=== PATIENT | male | born 1955 | race Caucasian/White ===

== ENCOUNTER 2016-07-31 14:56 | Emergency (ER) | payer OTHER ==
[~2016-07-31] VITALS: Ht 175.2 cm; Wt 99.8 kg
[~2016-07-31 14:56] MED LIST: ANAPROX DS550 MG PO; ASPIRIN BUFFER325 MG PO; INVEGA6 MG PO; LISINOPRIL20 MG PO; MIRTAZAPINE30 M2 PO; MOTRIN 600 MG E4 TAB PO; Motrin,Rufen800 MG PO; NATURE'S BLEND F1 MG PO; PRAVASTATIN SOD40 MG PO; ROBAXIN750 MG PO; THERA TABS1 TAB PO; VITAMIN B-11 TAB PO; VITAMIN D50000 I3 PO
[2016-07-31] MEDS ORDERED: TENORMIN50 MG PO (15:05)
[2016-07-31] MEDS ORDERED: CYMBALTA30 MG PO (15:05)
[2016-07-31] MEDS ORDERED: ASPIRIN81 M1 PO (15:05)
[2016-07-31] MEDS ORDERED: JANUVIA100 MG PO (15:06)
[2016-07-31] MEDS ORDERED: LIPITOR40 MG PO (15:06)
[2016-07-31] MEDS ORDERED: COLACE100 MG PO (15:06)
[2016-07-31] MEDS ORDERED: LISINOPRIL20 MG PO (15:06)
[2016-07-31] MEDS ORDERED: NORCO 10-325 T1 EACH PO (15:07)
[2016-07-31] MEDS ORDERED: MS CONTIN15 MG PO (15:07)
[2016-07-31] MEDS ORDERED: MILK OF MA400 MG/5 M PO (15:07)
[2016-07-31 15:41] LABS: BASO # 0.1 10*3/uL (0.0-0.1); BASO % 0.7 % (0.0-1.0); EOS # 0.4 10*3/uL (0.0-0.4); EOS % 5.5 % (1.0-4.0); HEMATOCRIT 43.3 % (42.0-52.0); HEMOGLOBIN 14.7 g/dl (14.0-18.0); LYMPH # 3.5 10*3/uL (1.3-4.4); LYMPH % 46.9 % (27.0-41.0); MEAN CORPUSCULAR HGB 33.3 pg (27.0-31.0); MEAN CORPUSCULAR HGB CONC 33.9 g/dl (33.0-37.0); MEAN PLATELET VOLUME 9.7 fl (9.6-12.3); MONO # 0.9 10*3/uL (0.1-1.0); MONO % 12.4 % (3.0-9.0); NEUT # 2.6 10*3/uL (2.3-7.9); NEUT % 34.4 % (47.0-73.0); PLATELET COUNT AUTOMATED 196 10*3/uL (130-400); RED BLOOD COUNT 4.42 10*6/uL (4.50-5.90); RED CELL DISTRI WIDTH 12.9 % (0-14.5); WHITE BLOOD COUNT 7.4 10*3/uL (4.8-10.8)
[2016-07-31 15:57] LABS: ALBUMIN 3.9 gm/dl (3.1-4.5); ALKALINE PHOSPHATASE 102 U/L (45-117); BILIRUBIN, TOTAL 0.3 mg/dl (0.2-1.0); BUN 26 mg/dl (7-24); CARBON DIOXIDE 25 mmol/L (21-32); CHLORIDE 101 mmol/L (98-107); EST GLOM FILT AFRICAN AMERICAN > 60 ml/min; GLUCOSE 171 mg/dL (65-99); POTASSIUM 4.5 mmol/L (3.5-5.1); SGOT/AST 21 IU/L (3-35); SGPT/ALT 28 U/L (12-78); SODIUM 136 mmol/L (136-145); TOTAL PROTEIN 7.5 gm/dL (6.4-8.2)
[2016-07-31 15:59] LABS: BILIRUBIN NEGATIVE (NEGATIVE); BLOOD TRACE-INTACT (NEGATIVE); CLARITY CLEAR (CLEAR); COLOR YELLOW (YELLOW); GLUCOSE NEGATIVE (NEGATIVE); KETONE NEGATIVE (NEGATIVE); LEUKO ESTERASE NEGATIVE (NEGATIVE); NITRITE NEGATIVE (NEGATIVE); PROTEIN NEGATIVE (NEGATIVE); SPECIFIC GRAVITY <= 1.005 (1.005-1.030); UROBILINOGEN 0.2 E.U./dl (0.2-1.0)
[2016-07-31 16:35] LABS: URINE REFLEX COMMENT NO (NO); WBC 0-2 wbc/hpf (0-5)
== END 2016-07-31 17:36 ==
LOC: ED 14:56
PROVIDERS: Nurse Practitioner Family
DX: K59.03 Drug induced constipation (principal); F32.9 Major depressive disorder, single episode, unspecified; I25.10 Atherosclerotic heart disease of native coronary artery without angina pectoris; I10 Essential (primary) hypertension; E78.5 Hyperlipidemia, unspecified; F17.200 Nicotine dependence, unspecified, uncomplicated; Z79.899 Other long term (current) drug therapy; Z79.82 Long term (current) use of aspirin

== ENCOUNTER 2016-10-24 10:48 | Emergency (ER) | payer OTHER, MEDICAID ==
[~2016-10-24] VITALS: Ht 172.7 cm; Wt 99.8 kg
[~2016-10-24 10:48] MED LIST changes: +ASPIRIN81 M1 PO; +COLACE100 MG PO; +CYMBALTA30 MG PO; +JANUVIA100 MG PO; +LIPITOR40 MG PO; +MILK OF MA400 MG/5 M PO; +MS CONTIN15 MG PO; +NORCO 10-325 T1 EACH PO; +TENORMIN50 MG PO
[2016-10-24 11:02] LABS: BASO # 0.1 10*3/uL (0.0-0.1); BASO % 0.7 % (0.0-1.0); EOS # 0.3 10*3/uL (0.0-0.4); EOS % 3.9 % (1.0-4.0); HEMATOCRIT 42.5 % (42.0-52.0); HEMOGLOBIN 14.2 g/dl (14.0-18.0); LYMPH # 2.5 10*3/uL (1.3-4.4); LYMPH % 33.2 % (27.0-41.0); MEAN CELL VOLUME 100.2 fl (80.0-94.0); MEAN CORPUSCULAR HGB 33.5 pg (27.0-31.0); MEAN CORPUSCULAR HGB CONC 33.4 g/dl (33.0-37.0); MEAN PLATELET VOLUME 9.1 fl (9.6-12.3); MONO # 0.7 10*3/uL (0.1-1.0); MONO % 9.1 % (3.0-9.0); NEUT # 3.9 10*3/uL (2.3-7.9); NEUT % 52.8 % (47.0-73.0); PLATELET COUNT AUTOMATED 210 10*3/uL (130-400); RED BLOOD COUNT 4.24 10*6/uL (4.50-5.90); RED CELL DISTRI WIDTH 14.2 % (0-14.5); WHITE BLOOD COUNT 7.5 10*3/uL (4.8-10.8)
[2016-10-24 11:17] LABS: ALKALINE PHOSPHATASE 81 U/L (45-117); BILIRUBIN, TOTAL 0.4 mg/dl (0.2-1.0); BUN 17 mg/dl (7-24); CARBON DIOXIDE 28 mmol/L (21-32); CHLORIDE 106 mmol/L (98-107); EST GLOM FILT AFRICAN AMERICAN > 60 ml/min; GLUCOSE 119 mg/dL (65-99); POTASSIUM 4.4 mmol/L (3.5-5.1); SGOT/AST 19 IU/L (3-35); SGPT/ALT 30 U/L (12-78); SODIUM 141 mmol/L (136-145); TOTAL PROTEIN 7.2 gm/dL (6.4-8.2)
[2016-10-24] MEDS ORDERED: BENGAY113 GM TP (12:37)
[2016-10-24] MEDS ORDERED: ASPIRIN325 M2 PO (12:41)
[2016-10-24] MEDS ORDERED: 'TENORMIN50 MG PO (12:41)
[2016-10-24] MEDS ORDERED: CYMBALTA30 MG PO (12:42)
[2016-10-24] MEDS ORDERED: VOLTAREN11 TP (12:45)
[2016-10-24] MEDS ORDERED: JANUVIA100 MG PO (12:46)
[2016-10-24] MEDS ORDERED: LIPITOR40 MG PO (12:46)
[2016-10-24] MEDS ORDERED: METFORMIN1000 MG PO (12:48)
[2016-10-24] MEDS ORDERED: LISINOPRIL20 MG PO (12:48)
[2016-10-24] MEDS ORDERED: MIRALAX POWDER17 G1 PO (12:49)
[2016-10-24] MEDS ORDERED: MOTRIN IB200 M1 PO (12:50)
[2016-10-24] MEDS ORDERED: NOVOLOG10 ML IV (12:51)
[2016-10-24] MEDS ORDERED: TYLENOL325 M1 PO (12:51)
[2016-10-24] MEDS ORDERED: NORCO 5-325 TA1 EACH PO (12:51)
[2016-10-24] MEDS ORDERED: VICTOZA 3-PAK6 MG/ML SC (12:52)
[2016-10-24] MEDS ORDERED: VITAMIN D31000 IU PO (12:53)
[2016-10-24] MEDS ORDERED: Zofran4 MG PO (12:53)
[2016-10-24 13:45] LABS: BILIRUBIN NEGATIVE (NEGATIVE); BLOOD NEGATIVE (NEGATIVE); CLARITY CLEAR (CLEAR); COLOR YELLOW (YELLOW); GLUCOSE NEGATIVE (NEGATIVE); KETONE NEGATIVE (NEGATIVE); LEUKO ESTERASE NEGATIVE (NEGATIVE); NITRITE NEGATIVE (NEGATIVE); PH 6.5 (5.0-9.0); PROTEIN TRACE (NEGATIVE); SPECIFIC GRAVITY <= 1.005 (1.005-1.030)
[2016-10-24] MEDS ORDERED: ZOFRAN4 MG PO (13:55)
[2016-10-24 13:56] LABS: URINE REFLEX COMMENT NO (NO)
== END 2016-10-24 14:08 | disposition home or self-care (01) ==
LOC: ED 10:48
PROVIDERS: Nurse Practitioner Family
DX: R11.2 Nausea with vomiting, unspecified (principal); R03.0 Elevated blood-pressure reading, without diagnosis of hypertension; R74.8 Abnormal levels of other serum enzymes; I25.10 Atherosclerotic heart disease of native coronary artery without angina pectoris; F32.9 Major depressive disorder, single episode, unspecified; E78.5 Hyperlipidemia, unspecified; F17.200 Nicotine dependence, unspecified, uncomplicated; Z90.89 Acquired absence of other organs; Z79.899 Other long term (current) drug therapy; Z79.82 Long term (current) use of aspirin; Z79.4 Long term (current) use of insulin

== ENCOUNTER → 2016-11-09 | Outpatient (CLI) | payer OTHER, MEDICAID ==
[~2016-11-09] MED LIST changes: +'TENORMIN50 MG PO; +ASPIRIN325 M2 PO; +BENGAY113 GM TP; +METFORMIN1000 MG PO; +MIRALAX POWDER17 G1 PO; +MOTRIN IB200 M1 PO; +NORCO 5-325 TA1 EACH PO; +NOVOLOG10 ML IV; +TYLENOL325 M1 PO; +VICTOZA 3-PAK6 MG/ML SC; +VITAMIN D31000 IU PO; +VOLTAREN11 TP; +ZOFRAN4 MG PO; +Zofran4 MG PO
== END | disposition home or self-care (01) ==
LOC: US 07:17
DX: K76.0 Fatty (change of) liver, not elsewhere classified (principal); Z90.5 Acquired absence of kidney

== ENCOUNTER → 2016-11-19 | Outpatient (CLI) | payer OTHER, MEDICAID | END | disposition home or self-care (01) | LOC: NM 07:00 | DX: J44.9 Chronic obstructive pulmonary disease, unspecified (principal); E11.9 Type 2 diabetes mellitus without complications; I10 Essential (primary) hypertension; E55.9 Vitamin D deficiency, unspecified; R07.89 Other chest pain; Q60.0 Renal agenesis, unilateral; E78.5 Hyperlipidemia, unspecified; R10.11 Right upper quadrant pain; R11.2 Nausea with vomiting, unspecified ==

== ENCOUNTER → 2016-12-16 | Day surgery (SDC) | payer OTHER ==
[~2016-12-16] VITALS: Ht 172.7 cm; Wt 99.8 kg
[~2016-12-16] MED LIST changes: +OMEPRAZOLE20 M2 PO
--- NOTE | ~2016-12-16 | O ---
[place], [place] OPERATIVE NOTE NAME: MONISHA SERRATO UNIT #: [id number] ROOM: DOCTOR: YESSICA CHRISTY,STEFANIE BIRTHDATE: [birth year] DOS: 12/16/2016 INDICATION: The patient has presented with nausea, epigastric distress and dyspepsia. PROCEDURE: Today's procedure part of investigation is panendoscopy plus biopsy. PREMEDICATIONS: Versed and Diprivan. SCOPE: Olympus forward-viewing gastroscope Q10 video. REPORT: After putting the patient in the left lateral position and application of lubricant to the scope, the scope was introduced. Thereafter, under direct visualization, I advanced through the length of the esophagus without difficulty. Distal esophagitis, hiatal hernia approximately 2.5 cm was identified. Gastric pouch was entered. Gastritis was seen. Antrum was biopsied for H. pylori. Duodenal bulb, second and third part within normal limit. The patient extubated and tolerated the procedure well. IMPRESSION: Distal esophagitis, hiatal hernia, gastritis status post biopsy. PLAN AND DISCUSSION: Omeprazole 20 mg 1 daily would suffice. Antireflux measures with elevation of the head of the bed 6 inch at all time was recommended. Advised to abstain from smoking and alcohol. Followup routinely with you in office, p.r.n. visit with us in [facility]. I thank you very much indeed for kind referral. STEFANIE JUAN MD CM:OPRECORD:OPERATIVE NOTE [id number] STEFANIE JUAN MD 12/17/16 1434 interface
--- NOTE | ~2016-12-16 | O ---
[place], [place] OPERATIVE NOTE NAME: MONISHA SERRATO UNIT #: [id number] ROOM: DOCTOR: STEFANIE JUAN MD BIRTHDATE: [birth year] DOS: 12/16/2016 INDICATION: A 61-year-old patient who presented with nausea, vomiting, epigastric distress, dyspepsia, constipation, change in bowel habit, visits to Emergency Room. ALLERGIES: No known medications. FAMILY HISTORY: Brother with colonic carcinoma. PAST SURGICAL HISTORY: Left shoulder, left knee, CABG x 4. PAST MEDICAL HISTORY: Hypertension, diabetes, hypercholesterolemia, ETOH, and pain management on [place]. SOCIAL HISTORY: He is a smoker and chronic alcohol consumer. PROCEDURE: Todays' procedure part of investigation is EGD and colonoscopy. PREMEDICATION: Versed and Diprivan. SCOPE: Olympus forward-viewing colonoscope 10L video. REPORT: After putting the patient in the left lateral position and after application of lubricant to the scope, the scope was introduced. Thereafter, under direct visualization, I advanced through the length of colon without difficulty. Base of the cecum explored, appendiceal orifice identified, and ileocecal valve was defined. The scope was gradually withdrawn from ascending, transverse, descending colon. Diverticulosis was appreciated. This was moderate degree in sigmoid colon. A sessile polypoid lesion in the rectal pouch with piecemeal polypectomy was removed. The patient extubated, tolerated procedure well. IMPRESSION: Diverticulosis of sigmoid colon. A sessile polypoid lesion in rectal pouch is status post piecemeal polypectomy. PLAN AND DISCUSSION: We are going to proceed with panendoscopy. [place], [place] OPERATIVE NOTE NAME: MONISHA SERRATO UNIT #: [id number] ROOM: DOCTOR: STEFANIE JUAN MD BIRTHDATE: [birth year] STEFANIE JUAN MD CM:OPRECORD:OPERATIVE NOTE [id number] STEFANIE JUAN MD 12/18/16 1347 interface
[2016-12-16 09:00] VITALS: BP 166/88
[2016-12-16 09:43] VITALS: BP 103/60
[2016-12-16 10:00] VITALS: BP 100/70
[2016-12-16 10:12] VITALS: BP 100/70
== END | disposition home or self-care (01) ==
LOC: SDC 12-10 08:45
DX: K29.70 Gastritis, unspecified, without bleeding (principal); K20.9 Esophagitis, unspecified; K44.9 Diaphragmatic hernia without obstruction or gangrene; E10.9 Type 1 diabetes mellitus without complications; F17.210 Nicotine dependence, cigarettes, uncomplicated; I25.10 Atherosclerotic heart disease of native coronary artery without angina pectoris; I25.2 Old myocardial infarction; I10 Essential (primary) hypertension; E78.5 Hyperlipidemia, unspecified; Z86.73 Personal history of transient ischemic attack (TIA), and cerebral infarction without residual deficits; Z90.5 Acquired absence of kidney; Z98.890 Other specified postprocedural states

== ENCOUNTER → 2016-12-31 | Outpatient (CLI) | payer OTHER ==
[~2016-12-31] MED LIST changes: +LANTUS100 U/ML SC
== END | disposition home or self-care (01) ==
LOC: CARD 02:06
DX: I25.10 Atherosclerotic heart disease of native coronary artery without angina pectoris (principal); I25.9 Chronic ischemic heart disease, unspecified

== ENCOUNTER 2017-01-14 23:11 | Inpatient (IN) | payer OTHER ==
[~2017-01-14] VITALS: Ht 172.7 cm; Wt 99.6 kg
[2017-01-14 23:11] VITALS: BP 167/86
[2017-01-14] MEDS ORDERED: CARAFATE1 G1 PO (23:39)
[2017-01-14] MEDS ORDERED: REGLAN5 MG PO (23:41)
[2017-01-14 23:43] LABS: INTERNATIONAL NORM RATIO 0.9 (2.0-3.5); PROTHROMBIN TIME 9.4 SECONDS (9.0-12.4)
[2017-01-14 23:50] LABS: ALBUMIN 3.6 gm/dl (3.1-4.5); BILIRUBIN, TOTAL 0.5 mg/dl (0.2-1.0); MAGNESIUM 1.5 mg/dL (1.5-2.1); POTASSIUM 4.7 mmol/L (3.5-5.1)
[2017-01-14 23:51] VITALS: BP 177/87
[2017-01-14 23:51] LABS: BASO # 0.1 10*3/uL (0.0-0.1); BASO % 0.7 % (0.0-1.0); EOS # 0.3 10*3/uL (0.0-0.4); EOS % 3.6 % (1.0-4.0); HEMATOCRIT 43.1 % (42.0-52.0); HEMOGLOBIN 15.7 g/dl (14.0-18.0); LYMPH # 3.1 10*3/uL (1.3-4.4); LYMPH % 35.1 % (27.0-41.0); MEAN CELL VOLUME 96.2 fl (80.0-94.0); MEAN CORPUSCULAR HGB CONC 36.4 g/dl (33.0-37.0); MEAN PLATELET VOLUME 10.3 fl (9.6-12.3); MONO # 0.9 10*3/uL (0.1-1.0); MONO % 9.9 % (3.0-9.0); NEUT # 4.4 10*3/uL (2.3-7.9); NEUT % 50.4 % (47.0-73.0); PLATELET COUNT AUTOMATED 192 10*3/uL (130-400); RED BLOOD COUNT 4.48 10*6/uL (4.50-5.90); RED CELL DISTRI WIDTH 12.6 % (0-14.5); WHITE BLOOD COUNT 8.8 10*3/uL (4.8-10.8)
[2017-01-14 23:52] LABS: TROPONIN I 0.02 ng/ml (<0.045)
[2017-01-14 23:53] LABS: TOTAL PROTEIN 6.9 gm/dL (6.4-8.2)
[2017-01-15 00:45] VITALS: BP 178/86
[2017-01-15 01:10] VITALS: BP 178/90
[2017-01-15 01:56] VITALS: BP 181/92
[2017-01-15 02:20] VITALS: BP 160/86
[2017-01-15] MEDS ORDERED: LISINOPRIL-HYDR1 TA2 PO (02:32)
[2017-01-15 04:00] VITALS: BP 161/97
[2017-01-15 06:02] LABS: MAGNESIUM 1.4 mg/dL (1.5-2.1); POTASSIUM 4.1 mmol/L (3.5-5.1)
[2017-01-15 06:05] LABS: BASO # 0.1 10*3/uL (0.0-0.1); BASO % 0.6 % (0.0-1.0); EOS # 0.4 10*3/uL (0.0-0.4); EOS % 3.8 % (1.0-4.0); HEMOGLOBIN 15.1 g/dl (14.0-18.0); LYMPH # 3.5 10*3/uL (1.3-4.4); LYMPH % 35.4 % (27.0-41.0); MEAN CELL VOLUME 97.3 fl (80.0-94.0); MEAN CORPUSCULAR HGB 33.4 pg (27.0-31.0); MEAN CORPUSCULAR HGB CONC 34.3 g/dl (33.0-37.0); MEAN PLATELET VOLUME 10.5 fl (9.6-12.3); MONO # 0.9 10*3/uL (0.1-1.0); NEUT # 5.1 10*3/uL (2.3-7.9); NEUT % 50.8 % (47.0-73.0); PHOSPHOROUS 2.6 mg/dL (2.5-4.9); PLATELET COUNT AUTOMATED 185 10*3/uL (130-400); RED BLOOD COUNT 4.52 10*6/uL (4.50-5.90)
[2017-01-15 06:11] LABS: HEMOGLOBIN A1c 11.2 % (4.8-5.6)
[2017-01-15 06:20] LABS: THYROID STIM HORMONE (HS) 0.752 uIU/ml (0.358-4.75)
[2017-01-15 06:22] LABS: FREE T4 1.2 ng/dl (0.76-1.46)
[2017-01-15 07:07] LABS: VITAMIN D, 25-HYDROXY 42.5 ng/mL (30-100)
[2017-01-15 07:08] LABS: FOLIC ACID 18.36 ng/mL (>5.38)
[2017-01-15 08:00] VITALS: BP 164/78
== END 2017-01-15 09:00 | disposition short-term general hospital (02) | DRG 280 ==
LOC: ED 23:11 → 5E 01-15 01:42 → ICCU 01-15 03:51
PROVIDERS: Emergency Medicine; Internal Medicine
DX: I21.4 Non-ST elevation (NSTEMI) myocardial infarction (principal); E11.01 Type 2 diabetes mellitus with hyperosmolarity with coma; N17.0 Acute kidney failure with tubular necrosis; E72.51 Non-ketotic hyperglycinemia; F32.9 Major depressive disorder, single episode, unspecified; I10 Essential (primary) hypertension; E78.5 Hyperlipidemia, unspecified; Z83.3 Family history of diabetes mellitus; E11.65 Type 2 diabetes mellitus with hyperglycemia; Z95.5 Presence of coronary angioplasty implant and graft; F17.210 Nicotine dependence, cigarettes, uncomplicated; I25.118 Atherosclerotic heart disease of native coronary artery with other forms of angina pectoris; D75.89 Other specified diseases of blood and blood-forming organs; E66.9 Obesity, unspecified; Z68.39 Body mass index [BMI] 39.0-39.9, adult

== ENCOUNTER 2021-09-12 17:24 | Inpatient (IN) | payer OTHER ==
[~2021-09-12] VITALS: Ht 175.2 cm; Wt 83.9 kg
[~2021-09-12 17:24] MED LIST changes: +CARAFATE1 G1 PO; +LISINOPRIL-HYDR1 TA2 PO; +REGLAN5 MG PO; -VITAMIN D31000 IU PO; +VITAMIN D3125 MC1 PO
[2021-09-12 17:32] VITALS: BP 154/63
[2021-09-12 17:58] LABS: BASO # 0.1 10*3/uL (0.0-0.1); BASO % 0.6 % (0.0-1.0); EOS # 0.3 10*3/uL (0.0-0.4); EOS % 3.9 % (1.0-4.0); HEMATOCRIT 44.3 % (42.0-52.0); LYMPH # 2.9 10*3/uL (1.3-4.4); LYMPH % 34.2 % (27.0-41.0); MEAN CELL VOLUME 96.5 fl (80.0-94.0); MEAN CORPUSCULAR HGB 30.3 pg (27.0-31.0); MEAN CORPUSCULAR HGB CONC 31.4 g/dl (33.0-37.0); MEAN PLATELET VOLUME 8.8 fl (9.6-12.3); MONO # 0.9 10*3/uL (0.1-1.0); MONO % 10.4 % (3.0-9.0); NEUT # 4.3 10*3/uL (2.3-7.9); NEUT % 50.8 % (47.0-73.0); PLATELET COUNT AUTOMATED 184 10*3/uL (130-400); RED BLOOD COUNT 4.59 10*6/uL (4.50-5.90); RED CELL DISTRI WIDTH 14.1 % (0-14.5); WHITE BLOOD COUNT 8.5 10*3/uL (4.8-10.8)
[2021-09-12 18:18] LABS: ALKALINE PHOSPHATASE 95 U/L (45-117); BUN 22 mg/dl (7-24); CHLORIDE 107 mmol/L (98-107); CREATININE 1.33 mg/dL (0.70-1.30); POTASSIUM 4.7 mmol/L (3.5-5.1); SGOT/AST 21 IU/L (3-35); SGPT/ALT 37 U/L (12-78); SODIUM 138 mmol/L (136-145); TOTAL PROTEIN 7.3 gm/dL (6.4-8.2)
[2021-09-12 19:04] LABS: BILIRUBIN Negative (Negative); BLOOD Negative (Negative); CLARITY Cloudy (Clear); COLOR Yellow (Yellow); GLUCOSE Negative (Negative); KETONE Trace (Negative); LEUKO ESTERASE 2+ (Negative); NITRITE Positive (Negative); PH 5.5 (4.5-8.0)
[2021-09-12 19:17] LABS: URINE COCAINE < 300 (300ng/ml); URINE METHADONE < 300 (300ng/ml); URINE OPIATES < 300 (300ng/ml)
[2021-09-12 19:28] LABS: URINE AMPHETAMINES < 1000 (1000ng/ml); URINE BARBITURATES < 200 (200ng/ml); URINE BENZODIAZEPINES < 200 (200ng/ml); URINE CANNABINOIDS (THC) < 50 (50ng/ml)
[2021-09-12 19:45] LABS: URINE PHENCYCLIDINE < 25 (25ng/ml)
[2021-09-12 19:54] LABS: BACTERIA 4+; WBC 31-40 wbc/hpf (0-5)
[2021-09-12] MEDS ORDERED: CLOPIDOGREL75 MG PO (21:34)
[2021-09-12] MEDS ORDERED: FLOMAX0.4 MG PO (21:34)
[2021-09-12] MEDS ORDERED: HUMALOG100 UNIT/2 SC ×2 (21:36→22:08)
[2021-09-12] MEDS ORDERED: LANTUS SOL100 UNIT/1 SC (21:43)
[2021-09-12] MEDS ORDERED: PRINIVIL20 M1 PO (21:44)
[2021-09-12] MEDS ORDERED: PRISTIQ50 MG PO (21:48)
[2021-09-12] MEDS ORDERED: SPS 15 GM/15 GM/60 M PO (21:53)
[2021-09-12] MEDS ORDERED: VITAMIN B125000 MC1 PO (21:54)
[2021-09-12] MEDS ORDERED: METFORMIN HYDR500 MG PO (21:58)
[2021-09-12] MEDS ORDERED: METOPROLOL TART75 MG PO (21:59)
[2021-09-12] MEDS ORDERED: NAMENDA10 MG PO (22:00)
[2021-09-12] MEDS ORDERED: VISTARIL25 M2 PO (22:09)
[2021-09-12] MEDS ORDERED: ANTI-DIARRHEAL2 MG PO (22:11)
[2021-09-12 22:13] VITALS: BP 117/60
[2021-09-12] MEDS ORDERED: PEPCID20 MG PO (22:13)
[2021-09-12] MEDS ORDERED: CELEXA10 MG PO (22:20)
[2021-09-12] MEDS ORDERED: EXELON1 EACH TD (22:21)
[2021-09-13 06:59] LABS: BASO # 0.1 10*3/uL (0.0-0.1); BASO % 0.7 % (0.0-1.0); EOS # 0.3 10*3/uL (0.0-0.4); EOS % 4.5 % (1.0-4.0); HEMATOCRIT 41.8 % (42.0-52.0); LYMPH # 2.3 10*3/uL (1.3-4.4); LYMPH % 34.4 % (27.0-41.0); MEAN CORPUSCULAR HGB 31.1 pg (27.0-31.0); MEAN CORPUSCULAR HGB CONC 32.1 g/dl (33.0-37.0); MEAN PLATELET VOLUME 9.5 fl (9.6-12.3); MONO # 0.8 10*3/uL (0.1-1.0); MONO % 11.9 % (3.0-9.0); NEUT # 3.2 10*3/uL (2.3-7.9); NEUT % 48.2 % (47.0-73.0); PLATELET COUNT AUTOMATED 176 10*3/uL (130-400); RED BLOOD COUNT 4.31 10*6/uL (4.50-5.90); WHITE BLOOD COUNT 6.7 10*3/uL (4.8-10.8)
[2021-09-13 07:20] LABS: ALKALINE PHOSPHATASE 87 U/L (45-117); BUN 18 mg/dl (7-24); CHLORIDE 108 mmol/L (98-107); CHOLESTEROL 87 mg/dL (<200); CREATININE 1.13 mg/dL (0.70-1.30); LDL CHOLESTEROL 29 mg/dL (9-159); POTASSIUM 3.9 mmol/L (3.5-5.1); SGOT/AST 19 IU/L (3-35); SGPT/ALT 34 U/L (12-78); SODIUM 140 mmol/L (136-145); TOTAL PROTEIN 6.7 gm/dL (6.4-8.2); TRIGLYCERIDES 143 mg/dl (<150)
[2021-09-13 08:00] VITALS: BP 155/84
[2021-09-13 08:53] LABS: VITAMIN D, 25-HYDROXY 48.4 ng/mL (30-100)
[2021-09-13 20:00] VITALS: BP 115/59
[2021-09-14 06:41] VITALS: BP 117/62
[2021-09-14 20:00] VITALS: BP 116/60
[2021-09-15 07:46] VITALS: BP 113/54
[2021-09-15 08:00] VITALS: BP 113/54
[2021-09-15 20:00] VITALS: BP 110/59
[2021-09-16 08:13] VITALS: BP 141/61
[2021-09-16 20:00] VITALS: BP 108/64
[2021-09-17 07:55] VITALS: BP 127/80
[2021-09-17 08:00] VITALS: BP 127/80
[2021-09-17] MEDS ORDERED: RIVASTIGMINE1 EAC2 T (10:04)
[2021-09-17] MEDS ORDERED: MEMANTINE HCL10 MG PO (10:04)
[2021-09-17] MEDS ORDERED: CITALOPRAM20 MG PO (10:04)
== END 2021-09-17 12:10 | DRG 886 ==
LOC: ED 17:24 → EDHOLD 21:03 → 3N 21:03
PROVIDERS: Nurse Practitioner Family; ADMIT Psychiatry & Neurology Psychiatry; ATTEND Psychiatry & Neurology Psychiatry
DX: F63.9 Impulse disorder, unspecified (principal); N17.0 Acute kidney failure with tubular necrosis; N39.0 Urinary tract infection, site not specified; Z20.822 Contact with and (suspected) exposure to COVID-19; D53.9 Nutritional anemia, unspecified; I25.10 Atherosclerotic heart disease of native coronary artery without angina pectoris; I10 Essential (primary) hypertension; E78.5 Hyperlipidemia, unspecified; F32.A Depression, unspecified; E11.9 Type 2 diabetes mellitus without complications; G30.9 Alzheimer's disease, unspecified; F02.80 Dementia in other diseases classified elsewhere, unspecified severity, without behavioral disturbance, psychotic disturbance, mood disturbance, and anxiety; N40.0 Benign prostatic hyperplasia without lower urinary tract symptoms; K21.9 Gastro-esophageal reflux disease without esophagitis; Z79.4 Long term (current) use of insulin; Z83.3 Family history of diabetes mellitus; Z79.899 Other long term (current) drug therapy